=== PATIENT | female | born 1940 | race Caucasian/White ===

== ENCOUNTER → 2023-12-28 11:04 | Outpatient (REF) | payer MEDICARE, OTHER, SELFPAY | LOC: DHCBS MAIN 11:04 | PROVIDERS: ATTENDING PHYSICIAN Internal Medicine Interventional Cardiology; FAMILY PHYSICIAN Hospitalist | DX: I35.0 Nonrheumatic aortic (valve) stenosis (principal) | CPT/HCPCS: 93306 ==

== ENCOUNTER → 2024-01-13 11:34 | Outpatient (REF) | payer MEDICARE, OTHER, SELFPAY ==
[2024-01-13 12:28] LABS: % Basophils 0.4 % (0-2); % Eosinophils 1.2 % (0-6); % Immature Granulocytes 0.2 % (0-0.5); % Lymphocytes 27.1 % (20.5-51.1); % Monocytes 8.2 % (1.7-9.3); % Neutrophils 62.9 % (42.2-75.2); Absolute Eosinophils 0.1 10^3/uL (0-0.7); Absolute Lymphocytes 2.7 10^3/uL (1.2-3.4); Absolute Monocytes 0.8 10^3/uL (0.1-0.6); Absolute Neutrophils 6.3 10^3/uL (1.4-6.5); Hematocrit 38.3 % (37.0-47.0); Hemoglobin 13.2 g/dL (12.0-16.0); Mean Corp Hgb Conc. 34.5 g/dL (33.0-37.0); Mean Corpuscular Hgb 31.4 pg (27.0-31.0); Mean Platelet Volume 11.4 fL (7.4-10.4); Nucleated Red Blood Cells % 0 %; Platelet Count 261 10^3/uL (130-400); Red Blood Cell Count 4.21 10^6/uL (4.20-5.40); Red Cell Dist. Width 13.4 % (11.5-14.5)
[2024-01-13 13:00] LABS: ALT (SGPT) 23 U/L (0-35); AST (SGOT) 37 U/L (14-36); Albumin 4.2 g/dl (3.5-5.0); Alkaline Phosphatase 57 U/L (38-126); Blood Urea Nitrogen 15 mg/dl (7-17); Calcium 9.4 mg/dl (8.4-10.2); Carbon Dioxide 23 mmol/L (22-30); Chloride 102 mmol/L (98-107); Direct Bilirubin 0.6 mg/dl (0.0-0.4); Glucose 100 mg/dl (70-99); LDH 252 U/L (120-246); Potassium 4.5 mmol/L (3.5-5.1); Sodium 136 mmol/L (135-145); Total Bilirubin 0.7 mg/dl (0.2-1.3); eGFR > 60.00
[2024-01-16 13:38] LABS: Haptoglobin 74 mg/dL (30-200)
== END ==
LOC: OLABMERCHI 11:34
PROVIDERS: ATTENDING PHYSICIAN Internal Medicine Interventional Cardiology; FAMILY PHYSICIAN Hospitalist
DX: D50.9 Iron deficiency anemia, unspecified (principal)
CPT/HCPCS: 80053; 82248; 83010; 83615; 85025

== ENCOUNTER → 2024-02-10 10:40 | Outpatient (REF) | payer MEDICARE, OTHER, SELFPAY ==
[2024-02-10 11:44] LABS: ALT (SGPT) 17 U/L (0-35); AST (SGOT) 29 U/L (14-36); Albumin 3.8 g/dl (3.5-5.0); Alkaline Phosphatase 50 U/L (38-126); Direct Bilirubin 0.1 mg/dl (0.0-0.4); LDH 222 U/L (120-246); Total Bilirubin 0.6 mg/dl (0.2-1.3); Total Protein 6.4 g/dl (6.3-8.2)
[2024-02-10 13:36] LABS: % Basophils 0.4 % (0-2); % Eosinophils 1.3 % (0-6); % Immature Granulocytes 0.4 % (0-0.5); % Lymphocytes 43.9 % (20.5-51.1); % Monocytes 12.2 % (1.7-9.3); % Neutrophils 41.8 % (42.2-75.2); Absolute Eosinophils 0.1 10^3/uL (0-0.7); Absolute Lymphocytes 2.4 10^3/uL (1.2-3.4); Absolute Monocytes 0.7 10^3/uL (0.1-0.6); Absolute Neutrophils 2.3 10^3/uL (1.4-6.5); Hematocrit 36.2 % (37.0-47.0); Hemoglobin 12.4 g/dL (12.0-16.0); Mean Corp Hgb Conc. 34.3 g/dL (33.0-37.0); Mean Corpuscular Hgb 30.9 pg (27.0-31.0); Mean Corpuscular Volume 90.3 fL (81.0-99.0); Mean Platelet Volume 11.6 fL (7.4-10.4); Nucleated Red Blood Cells % 0 %; Platelet Count 228 10^3/uL (130-400); Red Blood Cell Count 4.01 10^6/uL (4.20-5.40); Red Cell Dist. Width 13.6 % (11.5-14.5); White Blood Cell Count 5.4 10^3/uL (4.8-10.8)
[2024-02-11 21:04] LABS: Haptoglobin 85 mg/dL (30-200)
== END ==
LOC: OLABMERCHI 10:40
PROVIDERS: ATTENDING PHYSICIAN Hospitalist
DX: D50.9 Iron deficiency anemia, unspecified (principal)
CPT/HCPCS: 36415; 80076; 83010; 83615; 85025

== ENCOUNTER → 2024-05-04 13:00 | Outpatient (REF) | payer MEDICARE, OTHER, SELFPAY ==
[2024-05-04 13:40] LABS: Urine Albumin Trace (Neg - Trace); Urine Bilirubin Negative (Negative); Urine Character Slightly Cloudy (Clear); Urine Color Yellow; Urine Glucose Negative (Negative); Urine Ketone Trace (Negative); Urine Leukocyte 2+ (Negative); Urine Nitrite Negative (Negative); Urine Occult Blood Trace (Negative); Urine Urobilinogen Negative (Neg - 1+)
[2024-05-04 14:21] LABS: Urine Squamous Cell >30 /LPF (Few)
[2024-05-04 14:22] LABS: Urine Bacteria Many (Negative); Urine Red Blood Cell 0-2 /HPF (0-2); Urine White Cell >100 /HPF (0-5)
== END ==
LOC: OLABMERCHI 13:00
PROVIDERS: ATTENDING PHYSICIAN Hospitalist
DX: N39.0 Urinary tract infection, site not specified (principal)
CPT/HCPCS: 36415; 81003; 81015; 87077; 87086

== ENCOUNTER → 2024-05-24 18:00 | Outpatient (REF) | payer MEDICARE, OTHER, SELFPAY ==
[2024-05-25 13:34] LABS: Urine Albumin Negative (Neg - Trace); Urine Bilirubin Negative (Negative); Urine Character Clear (Clear); Urine Color Yellow; Urine Glucose Negative (Negative); Urine Ketone Negative (Negative); Urine Leukocyte 2+ (Negative); Urine Nitrite Negative (Negative); Urine Occult Blood Negative (Negative); Urine Specific Gravity 1.015 (<1.030); Urine Urobilinogen Negative (Neg - 1+)
[2024-05-25 14:29] LABS: Urine Squamous Cell >30 /LPF (Few)
[2024-05-25 14:33] LABS: Urine Red Blood Cell 0-2 /HPF (0-2); Urine White Cell >100 /HPF (0-5)
== END ==
LOC: OLABMERCHI 18:00
PROVIDERS: ATTENDING PHYSICIAN Nurse Practitioner Gerontology; FAMILY PHYSICIAN Hospitalist
DX: N39.0 Urinary tract infection, site not specified (principal)
CPT/HCPCS: 81003; 81015; 87086

== ENCOUNTER → 2024-06-14 10:00 | Outpatient (REF) | payer MEDICARE, OTHER, SELFPAY ==
[2024-06-15 14:54] LABS: Urine Albumin Negative (Neg - Trace); Urine Bilirubin Negative (Negative); Urine Character Slightly Cloudy (Clear); Urine Color Yellow; Urine Glucose Negative (Negative); Urine Ketone Negative (Negative); Urine Leukocyte 2+ (Negative); Urine Nitrite Negative (Negative); Urine Occult Blood Trace (Negative); Urine Urobilinogen Negative (Neg - 1+); Urine pH 6.5 (5.0-9.0)
[2024-06-15 16:55] LABS: Urine Red Blood Cell 0-2 /HPF (0-2); Urine White Cell 30-40 /HPF (0-5)
== END ==
LOC: OLABMERCHI 10:00
PROVIDERS: ATTENDING PHYSICIAN Hospitalist
DX: N39.0 Urinary tract infection, site not specified (principal)
CPT/HCPCS: 81003; 81015; 87086

== ENCOUNTER → 2024-07-03 09:06 | Outpatient (REF) | payer MEDICARE, OTHER, SELFPAY | LOC: RCS 09:06 | PROVIDERS: ATTENDING PHYSICIAN Internal Medicine Interventional Cardiology; FAMILY PHYSICIAN Hospitalist | DX: I35.0 Nonrheumatic aortic (valve) stenosis (principal) | CPT/HCPCS: 93306 ==

== ENCOUNTER → 2024-07-06 10:46 | Outpatient (REF) | payer MEDICARE, OTHER, SELFPAY ==
[2024-07-06 12:03] LABS: % Basophils 0.4 % (0-2); % Eosinophils 0.6 % (0-6); % Immature Granulocytes 0.3 % (0-0.5); % Lymphocytes 39.6 % (20.5-51.1); % Monocytes 9.2 % (1.7-9.3); % Neutrophils 49.9 % (42.2-75.2); Absolute Lymphocytes 2.8 10^3/uL (1.2-3.4); Absolute Monocytes 0.7 10^3/uL (0.1-0.6); Absolute Neutrophils 3.5 10^3/uL (1.4-6.5); Hemoglobin 13.9 g/dL (12.0-16.0); Mean Corp Hgb Conc. 35.6 g/dL (33.0-37.0); Mean Corpuscular Hgb 31.2 pg (27.0-31.0); Mean Corpuscular Volume 87.4 fL (81.0-99.0); Mean Platelet Volume 10.7 fL (7.4-10.4); Nucleated Red Blood Cells % 0 %; Platelet Count 305 10^3/uL (130-400); Red Blood Cell Count 4.46 10^6/uL (4.20-5.40); Red Cell Dist. Width 13.2 % (11.5-14.5); White Blood Cell Count 7.1 10^3/uL (4.8-10.8)
[2024-07-06 12:26] LABS: ALT (SGPT) 19 U/L (0-35); AST (SGOT) 32 U/L (14-36); Albumin 4.8 g/dl (3.5-5.0); Alkaline Phosphatase 63 U/L (38-126); Blood Urea Nitrogen 13 mg/dl (7-17); Calcium 9.9 mg/dl (8.4-10.2); Carbon Dioxide 24 mmol/L (22-30); Chloride 95 mmol/L (98-107); Direct Bilirubin 0.3 mg/dl (0.0-0.4); Glucose 107 mg/dl (70-99); LDH 252 U/L (120-246); Potassium 4.7 mmol/L (3.5-5.1); Sodium 130 mmol/L (135-145); Total Bilirubin 0.7 mg/dl (0.2-1.3); Total Protein 7.6 g/dl (6.3-8.2); eGFR > 60.00
[2024-07-08 09:44] LABS: Haptoglobin 110 mg/dL (30-200)
== END ==
LOC: OLAB 10:46
PROVIDERS: ATTENDING PHYSICIAN Hospitalist
DX: I10 Essential (primary) hypertension (principal); Z95.4 Presence of other heart-valve replacement; D64.9 Anemia, unspecified
CPT/HCPCS: 80053; 82248; 83010; 83615; 85025

== ENCOUNTER 2024-07-17 10:09 | Emergency (ER) | payer MEDICARE, OTHER, SELFPAY ==
[2024-07-17 10:14] VITALS: BP 128/94
--- NOTE | 2024-07-17 10:25 | ED.GENMED ---
History of Present Illness
General
Chief Complaint: Back Pain
Time Seen by Provider: 07/17/24 10:11
History of Present Illness
History of Present Illness:
84-year-old female with history of hypertension and osteoarthritis presenting to the emergency department for back pain. Patient reports chronic back pain, however yesterday she was polishing some furniture and after bending forward, started to
have some pain in her lumbar back. She tried using a cream from the drugstore without significant relief. Denies weakness or numbness to her lower extremities. She has been able to ambulate. Denies any direct fall or trauma. Denies issues with
urination or changes in defecation. Denies fever or systemic symptoms. Denies abdominal pain or GI symptoms. Denies chest pain or difficulty breathing. Denies additional acute medical complaints.
Past History
Past History
ED Past Medical History: GERD, HTN, Other (Osteoarthritis ) and Other (Urinary stress incontinence , cystocele, rectal prolapse, recurrent UTIs); Negative CAD or Cancer
ED Past Surgical History: Gynecological, Orthopedic and Other
Social History
Tobacco: Non-smoker
Alcohol: None
Drug: None
Personal:
Living: with family
Employment: Retired
Family History
Family History: Hypertension; Negative Early CAD or CAD
Phy Exam
Physical Exam
Physical Exam:
General: Well-appearing, no clinical signs of dehydration, nontoxic and in no acute distress
HEENT: protecting airway
Neck: appears supple
CV: Normal heart rate, regular rhythm, no evidence of cyanosis
Resp: No accessory muscle use, no increased work of breathing, lungs clear to auscultation bilaterally
Abd: Soft and non-distended, no tenderness to palpation, normal bowel sounds
Extremities: No deformities, no swelling, no erythema, pulses and sensation intact. Generalized tenderness to the lumbar region of the spine. No step-offs. No overlying skin changes.
Neuro: alert, no focal neurologic deficit
: deferred
Rectal: deferred
Psych: Normal affect
Skin: Intact
Course
Orders/Labs/Results
Orders:
Orders
07/17/24 10:20
Ketorolac [Toradol] 15 mg IM NOW STA
Lidocaine [Lidocaine 4% Patch] 1 patch TOPICAL NOW STA
Apply Lidocaine patch(s) to:: lumbar back
07/17/24 10:21
CR Lumbar Spine Comp Min 4 Vw* Urgent
Comment:
Reason For Exam: pain, midline, hx osteoarthritis
Vital Signs
Initial and Last Documented VS:
Initial Vital Signs
Temp Pulse Resp BP Pulse Ox
98.3 F 79 16 128/94 97
07/17/24 10:14 07/17/24 10:14 07/17/24 10:14 07/17/24 10:14 07/17/24 10:14
Last Documented Vital Signs
Temp Pulse Resp BP Pulse Ox
98.3 F 79 16 128/94 97
07/17/24 10:14 07/17/24 10:14 07/17/24 10:14 07/17/24 10:14 07/17/24 10:14
MDM/Problems Addressed
MDM/Problems Addressed:
84-year-old female with history of chronic back pain presenting for lumbar back pain after bending forward while polishing furniture yesterday. Vital signs on arrival are normal.
On physical exam, patient is well-appearing, no acute distress or discomfort. On examination of the back. Generalized tenderness to the lumbar region. No step-offs. Tenderness to the bony region in the paraspinal musculature. Suspected acute on
chronic osteoarthritis. Lower suspicion for fracture in the absence of direct trauma, however known osteoarthritis so compression fracture is a consideration. No neurovascular compromise, without concern for acute spinal process. Toradol and
lidocaine patch administered for pain.
11:20 -x-ray without any obvious fracture, degenerative disc disease. On reassessment, patient does note some improvement of pain. Daughter at bedside, updated on results. Feel stable for discharge, lives in assisted living facility. Will
prescribe meloxicam and lidocaine patches. Daughter will drive her home. Return precautions discussed and patient verbalized understanding
*Critical Care Note
Total Time (30-74mins, 75-104mins- exclusive of procedures): Not Applicable
ED Attending Note
-
Portions of this chart may have been created with voice recognition software.� Occasional wrong word or��sound alike� substitutions may have occurred due to the inherent limitations of voice recognition software.
Discharge Plan
Departure
Prescriptions:
No Action
famotidine 20 mg Tablet
20 mg PO HS
furosemide 20 mg Tablet
20 mg PO MOWEFR
Rx Instructions:
08/27/2023, patient takes one tablet of this medication in the morning on Mondays, Wednesdays, and Fridays.
multivitamin with iron Tablet
1 tab PO DAILY
amlodipine 10 mg Tablet
10 mg PO DAILY Qty: 30 1RF
metoprolol succinate 25 mg Tablet Extended Release 24 Hr
25 mg PO DAILY Qty: 30 1RF
folic acid 1 mg Tablet
1 mg PO DAILY Qty: 1 0RF
polyethylene glycol 3350 17 gram Powder In Packet
17 g PO DAILY
cyclosporine [Restasis] 0.05 % Dropperette
1 drp BOTH EYES BID
lidocaine 4 % adhesive patch,medicated
1 patch topical DAILY
Rx Instructions:
08/27/2023, patient applies patch 12 hrs on and 12 hrs off.
oxycodone 5 mg tablet
5 mg PO Q8H PRN (Reason: moderate pain)
aspirin 81 mg Tablet,Delayed Release (Dr/Ec)
81 mg PO DAILY
docusate sodium 100 mg Capsule
100 mg PO Q12H
potassium chloride 20 mEq Tablet Extended Release
20 meq PO MOWEFR
Rx Instructions:
08/27/2023, patient takes one tablet of this medication in the morning on Mondays, Wednesdays, and Fridays.
sennosides [Senna Laxative] 8.6 mg tablet
8.6 mg PO Q12H
acetaminophen 325 mg tablet
650 mg PO Q4H
Referrals:
Cathy Copeland DO [Family Provider] -
Interventions
Interventions:
*Risk Screen - Suicide Last Done: 07/17/24 10:14
*General Assessment Last Done: 07/17/24 10:14
*Neglect/Abuse Screening Last Done: 07/17/24 10:14
ED- Fall Risk Assessment Last Done: 07/17/24 10:14
ED-Musculoskeletal Assessment Last Done: 07/17/24 10:21
Discharge Date and Time
Print Language: URDU
[2024-07-17] MEDS: LIDOCAINE 4% PATCH 1 PATCH TOPICAL (10:37)
[2024-07-17] MEDS: TORADOL 15 MG IM (10:38)
== END 2024-07-17 11:46 | disposition home or self-care (01) ==
LOC: EMR 10:09
PROVIDERS: EMERGENCY PHYSICIAN Student in an Organized Health Care Education/Training Program; FAMILY PHYSICIAN Hospitalist
DX: M54.50 Low back pain, unspecified (principal); I10 Essential (primary) hypertension; K21.9 Gastro-esophageal reflux disease without esophagitis; M19.90 Unspecified osteoarthritis, unspecified site; N39.3 Stress incontinence (female) (male); G89.29 Other chronic pain; Z79.82 Long term (current) use of aspirin; Z87.440 Personal history of urinary (tract) infections; Z88.1 Allergy status to other antibiotic agents; Z88.8 Allergy status to other drugs, medicaments and biological substances
CPT/HCPCS: 99284; 96372; 72110

== ENCOUNTER → 2024-10-27 06:38 | Outpatient (REF) | payer MEDICARE, OTHER, SELFPAY | LOC: PAVMRI 06:38 | PROVIDERS: ATTENDING PHYSICIAN Pain Medicine Interventional Pain Medicine; FAMILY PHYSICIAN Hospitalist | DX: M54.16 Radiculopathy, lumbar region (principal) | CPT/HCPCS: 72148 ==

== ENCOUNTER 2024-12-20 20:41 | Emergency (ER) | payer MEDICARE, OTHER, SELFPAY ==
[2024-12-20 20:44] VITALS: BP 135/76
[2024-12-21 00:05] VITALS: BP 117/88
--- NOTE | 2024-12-21 00:37 | ED.GENMED ---
History of Present Illness
General
Chief Complaint: Fall
Time Seen by Provider: 12/20/24 23:48
History of Present Illness
History of Present Illness:
84-year-old female history of hypertension, aortic stenosis presenting status post mechanical fall. Daughter states that patient slipped and fell landing on her left side. Patient denies striking her head or loss of consciousness. Patient is not
on blood thinners. Patient reports chronic pain all over, but denies any acute pain including new neck pain, back pain, abdominal pain, chest pain, or extremity pain. Patient states that she has been able to walk since falling.
Past History
Past History
ED Past Medical History: GERD, HTN, Other (Osteoarthritis ) and Other (Urinary stress incontinence , cystocele, rectal prolapse, recurrent UTIs); Negative CAD or Cancer
ED Past Surgical History: Gynecological, Orthopedic and Other
Social History
Tobacco: Non-smoker
Alcohol: None
Drug: None
Personal:
Living: with family
Employment: Retired
Family History
Family History: Hypertension; Negative Early CAD or CAD
Phy Exam
Physical Exam
Physical Exam:
General: Alert, no acute distress
Head: NCAT
Eyes: clear conjunctiva
Neck: supple
Cardiac: regular rate and rhythm, no murmur. No chest wall tenderness to palpation
Lungs: clear to auscultation bilaterally. No wheezes, rales, or rhonchi. Speaking full unlabored sentences. No respiratory distress.
Abdomen: soft, nondistended nontender. No rebound or guarding.
MSK: no lower extremity edema bilaterally. No deformity. No tenderness palpation to bilateral upper or lower extremities. No midline cervical/thoracic/lumbar tenderness to palpation
Skin: warm, dry
Neuro: Alert and oriented x3. no focal deficits
Course
Orders/Labs/Results
Orders:
Orders
12/20/24 20:56
Urinalysis Reflex To Culture Urgent
Date Specimen was Collected: 12/20/24
Time Specimen was Collected: 20:56
Vital Signs
Initial and Last Documented VS:
Initial Vital Signs
Temp Pulse Resp BP Pulse Ox
98.2 F 81 16 135/76 98
12/20/24 20:44 12/20/24 20:44 12/20/24 20:44 12/20/24 20:44 12/20/24 20:44
Last Documented Vital Signs
Temp Pulse Resp BP Pulse Ox
97.8 F 67 17 117/88 94
12/21/24 00:39 12/21/24 00:05 12/21/24 00:05 12/21/24 00:05 12/21/24 00:05
MDM/Problems Addressed
MDM/Problems Addressed:
84-year-old female presenting status post mechanical fall. Patient did not strike her head or lose consciousness. Patient denies any complaints. Unremarkable physical exam. Patient has been able to walk to the bathroom with no difficulty. No
indication for additional imaging at this time. Stable for discharge with PCP follow-up. Advised take Tylenol as needed for pain
*Critical Care Note
Total Time (30-74mins, 75-104mins- exclusive of procedures): Not Applicable
ED Attending Note
-
Portions of this chart may have been created with voice recognition software.� Occasional wrong word or��sound alike� substitutions may have occurred due to the inherent limitations of voice recognition software.
Discharge Plan
Departure
Patient Disposition: Home (Routine Discharge)
Date of Disposition: 12/21/24
Time of Disposition: 00:02
Patient with high blood pressure during this ER visit?: Yes
Discharge Problem:
Fall
Prescriptions:
No Action
famotidine 20 mg Tablet
20 mg PO HS
furosemide 20 mg Tablet
20 mg PO MOWEFR
Rx Instructions:
08/27/2023, patient takes one tablet of this medication in the morning on Mondays, Wednesdays, and Fridays.
multivitamin with iron Tablet
1 tab PO DAILY
amlodipine 10 mg Tablet
10 mg PO DAILY Qty: 30 1RF
metoprolol succinate 25 mg Tablet Extended Release 24 Hr
25 mg PO DAILY Qty: 30 1RF
folic acid 1 mg Tablet
1 mg PO DAILY Qty: 1 0RF
polyethylene glycol 3350 17 gram Powder In Packet
17 g PO DAILY
cyclosporine [Restasis] 0.05 % Dropperette
1 drp BOTH EYES BID
lidocaine 4 % adhesive patch,medicated
1 patch topical DAILY
Rx Instructions:
08/27/2023, patient applies patch 12 hrs on and 12 hrs off.
oxycodone 5 mg tablet
5 mg PO Q8H PRN (Reason: moderate pain)
aspirin 81 mg Tablet,Delayed Release (Dr/Ec)
81 mg PO DAILY
docusate sodium 100 mg Capsule
100 mg PO Q12H
potassium chloride 20 mEq Tablet Extended Release
20 meq PO MOWEFR
Rx Instructions:
08/27/2023, patient takes one tablet of this medication in the morning on Mondays, Wednesdays, and Fridays.
sennosides [Senna Laxative] 8.6 mg tablet
8.6 mg PO Q12H
acetaminophen 325 mg tablet
650 mg PO Q4H
naproxen 500 mg tablet
500 mg PO BID 7 Days Qty: 14 0RF
Rx Instructions:
take with food to avoid stomach discomfort
lidocaine 5 % adhesive patch,medicated
1 patch topical DAILY Qty: 10 0RF
Referrals:
Cathy Copeland DO [Family Provider] -
Activity Restrictions/Additional Instructions:
Take Tylenol 975 mg every 6 hours as needed for
Follow-up with primary care doctor in 1 to 2 days
Return to the emergency department for new/worsening symptoms
Interventions
Interventions:
*Risk Screen - Suicide Last Done: 12/20/24 20:44
*Neglect/Abuse Screening Last Done: 12/20/24 20:44
ED- Fall Risk Assessment Last Done: 12/21/24 00:39
*Nursing Disposition Last Done: 12/21/24 00:39
ED-Musculoskeletal Assessment Last Done: 12/21/24 00:05
ED- Neurological Assessment Last Done: 12/21/24 00:05
ED-Skin Assessment Last Done: 12/21/24 00:05
Discharge Date and Time
Discharge Date/Time: 12/21/24 00:41
Print Language: AMHARIC
== END 2024-12-21 00:41 | disposition home or self-care (01) ==
LOC: EMR 20:41
PROVIDERS: EMERGENCY PHYSICIAN Emergency Medicine; FAMILY PHYSICIAN Hospitalist
DX: Z04.3 Encounter for examination and observation following other accident (principal); I10 Essential (primary) hypertension; G89.29 Other chronic pain; I35.0 Nonrheumatic aortic (valve) stenosis; K21.9 Gastro-esophageal reflux disease without esophagitis
CPT/HCPCS: 99282

== ENCOUNTER → 2025-01-11 06:54 | Outpatient (REF) | payer MEDICARE, OTHER, SELFPAY | LOC: RCS 06:54 | PROVIDERS: ATTENDING PHYSICIAN Pain Medicine Interventional Pain Medicine; FAMILY PHYSICIAN Hospitalist | DX: Z01.818 Encounter for other preprocedural examination (principal) | CPT/HCPCS: 93005 ==

== ENCOUNTER → 2025-02-15 12:51 | Outpatient (REF) | payer MEDICARE, OTHER, SELFPAY ==
[2025-02-15 14:29] LABS: % Basophils 0.6 % (0-2); % Eosinophils 1.7 % (0-6); % Immature Granulocytes 0.3 % (0-0.5); % Lymphocytes 48.8 % (20.5-51.1); % Neutrophils 38.6 % (42.2-75.2); Absolute Eosinophils 0.1 10^3/uL (0-0.7); Absolute Lymphocytes 3.2 10^3/uL (1.2-3.4); Absolute Monocytes 0.7 10^3/uL (0.1-0.6); Absolute Neutrophils 2.5 10^3/uL (1.4-6.5); Hematocrit 40.3 % (37.0-47.0); Hemoglobin 13.1 g/dL (12.0-16.0); Mean Corp Hgb Conc. 32.5 g/dL (33.0-37.0); Mean Corpuscular Hgb 30.3 pg (27.0-31.0); Mean Corpuscular Volume 93.3 fL (81.0-99.0); Mean Platelet Volume 10.5 fL (7.4-10.4); Nucleated Red Blood Cells % 0 %; Platelet Count 312 10^3/uL (130-400); Red Blood Cell Count 4.32 10^6/uL (4.20-5.40); Red Cell Dist. Width 15.3 % (11.5-14.5); White Blood Cell Count 6.5 10^3/uL (4.8-10.8)
[2025-02-15 15:01] LABS: ALT (SGPT) 14 U/L (0-35); AST (SGOT) 29 U/L (14-36); Albumin 4.1 g/dl (3.5-5.0); Alkaline Phosphatase 80 U/L (38-126); Blood Urea Nitrogen 16 mg/dl (7-17); Calcium 9.7 mg/dl (8.4-10.2); Carbon Dioxide 26 mmol/L (22-30); Chloride 101 mmol/L (98-107); Glucose 95 mg/dl (70-99); HDL Cholesterol 52 mg/dl; LDL Cholesterol, Calculated 101 mg/dl; Magnesium 2.2 mg/dl (1.6-2.3); Potassium 4.3 mmol/L (3.5-5.1); Sodium 136 mmol/L (135-145); Total Bilirubin 0.8 mg/dl (0.2-1.3); Total Cholesterol 219 mg/dl (50-199); Triglyceride 330 mg/dl (10-149); Very Low Density Lipoprotein 66 mg/dl (0-30); eGFR > 60.00
[2025-02-15 15:31] LABS: TSH 3.43 uIU/ml (0.47-4.68)
== END ==
LOC: OLABMERCHI 12:51
PROVIDERS: ATTENDING PHYSICIAN Hospitalist
DX: D64.9 Anemia, unspecified (principal); I10 Essential (primary) hypertension; D50.9 Iron deficiency anemia, unspecified
CPT/HCPCS: 36415; 80053; 80061; 83735; 84443; 85025

== ENCOUNTER 2025-04-20 10:52 | Emergency (ER) | payer MEDICARE, OTHER, SELFPAY ==
[2025-04-20 11:05] VITALS: BP 153/96
--- NOTE | 2025-04-20 11:25 | ED.GENMED ---
History of Present Illness
General
Chief Complaint: Eye Problems
Time Seen by Provider: 04/20/25 11:11
History of Present Illness
History of Present Illness:
84-year-old female presents to the emergency department for evaluation of eye redness that began this morning. Denies any eye injuries or trauma. Denies blurry vision or eye pain. She is not on any anticoagulants. No headaches or fevers. Does
not wear contacts
Past History
Past History
ED Past Medical History: GERD, HTN, Other (Osteoarthritis ) and Other (Urinary stress incontinence , cystocele, rectal prolapse, recurrent UTIs); Negative CAD or Cancer
ED Past Surgical History: Gynecological, Orthopedic and Other
Social History
Tobacco: Non-smoker
Alcohol: None
Drug: None
Personal:
Living: with family
Employment: Retired
Family History
Family History: Hypertension; Negative Early CAD or CAD
Review of Systems
Review of Systems
Allergies reviewed?: Yes
All Other Systems: ROS reviewed and negative except as documented in HPI and ROS
Phy Exam
Physical Exam
Physical Exam:
GEN: Well appearing, NAD, WDWN
HEENT: Oral mucosa moist, no scleral icterus. Large subconjunctival hemorrhage on the left encompassing nearly the entire lower conjunctivo with mild bruising to the naso-lacrimal soft tissues. Extraocular motions intact in all fox with no
diplopia. No hyphema or hypoplasia. No focal fluorescein stain uptake
Cardiac: Regular rate
Lung: No respiratory distress, no tachypnea
MSK: No gross deformity or injuries
Skin: Good color, no pallor or jaundice, no rashes
Neuro: AO x3, moves all extremities freely
Psych: Calm, cooperative
Course
Vital Signs
Initial and Last Documented VS:
Initial Vital Signs
Temp Pulse Resp BP Pulse Ox
98.1 F 88 15 153/96 97
04/20/25 11:04/20/25 11:05 04/20/25 11:05 04/20/25 11:05 04/20/25 11:05
Last Documented Vital Signs
Temp Pulse Resp BP Pulse Ox
98.1 F 88 15 153/96 97
04/20/25 11:05 04/20/25 11:05 04/20/25 11:05 04/20/25 11:05 04/20/25 11:05
MDM/Problems Addressed
MDM/Problems Addressed:
Visual acuity is intact, subconjunctival hemorrhage is present with no obvious reports of trauma. She is not anticoagulated and there is no hyphema. Discussed supportive care and indications for ED return or ophthalmology follow-up
*Critical Care Note
Total Time (30-74mins, 75-104mins- exclusive of procedures): Not Applicable
ED Attending Note
-
Portions of this chart may have been created with voice recognition software.� Occasional wrong word or��sound alike� substitutions may have occurred due to the inherent limitations of voice recognition software.
Discharge Plan
Departure
Patient Disposition: Home (Routine Discharge)
Date of Disposition: 04/20/25
Time of Disposition: 11:25
Patient with high blood pressure during this ER visit?: No
Discharge Problem:
Subconjunctival hemorrhage
Instructions: Subconjunctival Hemorrhage
Prescriptions:
No Action
famotidine 20 mg Tablet
20 mg PO HS
furosemide 20 mg Tablet
20 mg PO MOWEFR
Rx Instructions:
08/27/2023, patient takes one tablet of this medication in the morning on Mondays, Wednesdays, and Fridays.
multivitamin with iron Tablet
1 tab PO DAILY
amlodipine 10 mg Tablet
10 mg PO DAILY Qty: 30 1RF
metoprolol succinate 25 mg Tablet Extended Release 24 Hr
25 mg PO DAILY Qty: 30 1RF
folic acid 1 mg Tablet
1 mg PO DAILY Qty: 1 0RF
polyethylene glycol 3350 17 gram Powder In Packet
17 g PO DAILY
cyclosporine [Restasis] 0.05 % Dropperette
1 drp BOTH EYES BID
lidocaine 4 % adhesive patch,medicated
1 patch topical DAILY
Rx Instructions:
08/27/2023, patient applies patch 12 hrs on and 12 hrs off.
oxycodone 5 mg tablet
5 mg PO Q8H PRN (Reason: moderate pain)
aspirin 81 mg Tablet,Delayed Release (Dr/Ec)
81 mg PO DAILY
docusate sodium 100 mg Capsule
100 mg PO Q12H
potassium chloride 20 mEq Tablet Extended Release
20 meq PO MOWEFR
Rx Instructions:
08/27/2023, patient takes one tablet of this medication in the morning on Mondays, Wednesdays, and Fridays.
sennosides [Senna Laxative] 8.6 mg tablet
8.6 mg PO Q12H
acetaminophen 325 mg tablet
650 mg PO Q4H
naproxen 500 mg tablet
500 mg PO BID 7 Days Qty: 14 0RF
Rx Instructions:
take with food to avoid stomach discomfort
lidocaine 5 % adhesive patch,medicated
1 patch topical DAILY Qty: 10 0RF
Interventions
Interventions:
*Risk Screen - Suicide Last Done: 04/20/25 11:05
*General Assessment Last Done: 04/20/25 11:05
*Neglect/Abuse Screening Last Done: 04/20/25 11:05
*Nursing Disposition Last Done: 04/20/25 11:39
Discharge Date and Time
Discharge Date/Time: 04/20/25 11:49
Print Language: ROMANIAN
== END 2025-04-20 11:49 | disposition home or self-care (01) ==
LOC: EMR 10:52
PROVIDERS: EMERGENCY PHYSICIAN Emergency Medicine; FAMILY PHYSICIAN Hospitalist
DX: H11.32 Conjunctival hemorrhage, left eye (principal)
CPT/HCPCS: 99283

== ENCOUNTER → 2025-05-09 16:04 | Outpatient (REF) | payer MEDICARE, OTHER, SELFPAY ==
[2025-05-09 16:43] LABS: Urine Albumin 2+ (Neg - Trace); Urine Bilirubin Negative (Negative); Urine Character Slightly Cloudy (Clear); Urine Color Yellow; Urine Glucose Negative (Negative); Urine Ketone Negative (Negative); Urine Leukocyte 3+ (Negative); Urine Nitrite Negative (Negative); Urine Occult Blood 1+ (Negative); Urine Specific Gravity 1.015 (<1.030); Urine Urobilinogen Negative (Neg - 1+)
[2025-05-09 17:21] LABS: Urine Calcium Oxalate Crystals Present; Urine Red Blood Cell 0-2 /HPF (0-2); Urine Squamous Cell 26-30 /LPF (Few); Urine White Cell >100 /HPF (0-5)
[2025-05-09 17:22] LABS: Urine Bacteria Many (Negative)
== END ==
LOC: OLABMERCHI 16:04
PROVIDERS: ATTENDING PHYSICIAN Hospitalist
DX: N39.0 Urinary tract infection, site not specified (principal); R30.0 Dysuria
CPT/HCPCS: 81003; 81015; 87077; 87086

== ENCOUNTER → 2025-05-10 11:14 | Outpatient (REF) | payer MEDICARE, OTHER, SELFPAY ==
[2025-05-10 13:35] LABS: % Basophils 0.3 % (0-2); % Immature Granulocytes 0.1 % (0-0.5); % Lymphocytes 38.8 % (20.5-51.1); % Monocytes 8.7 % (1.7-9.3); % Neutrophils 50.1 % (42.2-75.2); Absolute Eosinophils 0.1 10^3/uL (0-0.7); Absolute Lymphocytes 2.7 10^3/uL (1.2-3.4); Absolute Monocytes 0.6 10^3/uL (0.1-0.6); Absolute Neutrophils 3.5 10^3/uL (1.4-6.5); Hematocrit 40.2 % (37.0-47.0); Hemoglobin 13.3 g/dL (12.0-16.0); Mean Corp Hgb Conc. 33.1 g/dL (33.0-37.0); Mean Corpuscular Hgb 30.6 pg (27.0-31.0); Mean Corpuscular Volume 92.6 fL (81.0-99.0); Mean Platelet Volume 11.7 fL (7.4-10.4); Nucleated Red Blood Cells % 0 %; Platelet Count 275 10^3/uL (130-400); Red Blood Cell Count 4.34 10^6/uL (4.20-5.40); Red Cell Dist. Width 14.1 % (11.5-14.5)
[2025-05-10 14:43] LABS: ALT (SGPT) 15 U/L (0-35); AST (SGOT) 27 U/L (14-36); Albumin 4.6 g/dl (3.5-5.0); Alkaline Phosphatase 56 U/L (38-126); Blood Urea Nitrogen 14 mg/dl (7-17); Calcium 9.9 mg/dl (8.4-10.2); Carbon Dioxide 27 mmol/L (22-30); Chloride 101 mmol/L (98-107); Glucose 108 mg/dl (70-99); HDL Cholesterol 63 mg/dl; LDL Cholesterol, Calculated 108 mg/dl; Sodium 137 mmol/L (135-145); Total Bilirubin 0.9 mg/dl (0.2-1.3); Total Cholesterol 213 mg/dl (50-199); Total Protein 7.6 g/dl (6.3-8.2); Triglyceride 212 mg/dl (10-149); Very Low Density Lipoprotein 42 mg/dl (0-30); eGFR > 60.00
[2025-05-10 15:25] LABS: TSH 2.24 uIU/ml (0.47-4.68)
[2025-05-12 10:46] LABS: Haptoglobin 97 mg/dL (30-200)
== END ==
LOC: OLABMERCHI 11:14
PROVIDERS: ATTENDING PHYSICIAN Hospitalist
DX: N39.0 Urinary tract infection, site not specified (principal); R30.0 Dysuria; E78.5 Hyperlipidemia, unspecified
CPT/HCPCS: 36415; 80053; 80061; 83010; 84443; 85025

== ENCOUNTER → 2025-05-24 06:43 | Outpatient (REF) | payer MEDICARE, OTHER, SELFPAY | LOC: RCS 06:43 | PROVIDERS: ATTENDING PHYSICIAN Internal Medicine Interventional Cardiology; FAMILY PHYSICIAN Hospitalist | DX: I35.0 Nonrheumatic aortic (valve) stenosis (principal) | CPT/HCPCS: 93306 ==